=== PATIENT | male | born 1950 | race Caucasian/White ===

== ENCOUNTER 2022-05-22 21:51 | Inpatient (IN) | payer MEDICARE ==
[~2022-05-22] VITALS: Ht 193 cm; Wt 63.5 kg
[2022-05-22] MEDS ORDERED: CARB1TAB24 PO (23:19)
[2022-05-22] MEDS ORDERED: PRAM1TAB7 PO (23:21)
[2022-05-22] MEDS ORDERED: QUET50TA15 PO (23:22)
[2022-05-22] MEDS ORDERED: ACETAMINOPHEN 325 MG TABLET PO PRN (23:30)
[2022-05-22] MEDS ORDERED: LORAZEPAM 0.5 MG TABLET PO PRN (23:30)
[2022-05-22] MEDS ORDERED: MAGNESIUM HYDROXIDE 30 ML UDC PO PRN (23:30)
[2022-05-22] MEDS ORDERED: MAG HYDROX/AL HYDROX/SIMETH 30 ML UDC PO PRN (23:30)
[2022-05-22] MEDS ORDERED: BLOOD SUGAR DIAGNOSTIC 1 EACH STRIP IN ONE (23:45)
[2022-05-23 00:17] VITALS: BP 138/67
--- NOTE | 2022-05-23 01:22 | NUR ---
GPS ADMISSION NOTE,RECEIVED PATIENT FROM [facility].ARRIVED ON THIS UNIT AT 2300 VIA STRETCHER WITH 2 EMT ESCORTS.PATIENT ADMITTED ON 5150 HOLD FOR GD.THE 5150 WAS REVIEWED AND THE DOCUMENTATION IN THE 5150 HOLD APPEARS TO REFLECT THE PRESENTATION OF THE PATIENT.UPON FACE TO FACE ASSESSMENT.PATIENT IS NOTED ,DISHEVELED ,DISORGANIZED,COOPERATIVE AND NEEDS REDIRECTION.PATIENT IS CURRENTLY LYING IN BED,AWAKE HAS NO S/S OR COMPLAINT OF PAIN.PATIENT IS DISPLAYING NO S/S OF APPARENT DISTRESS.PATIENT BREATHING EVEN AND UNLABORED WITH EQUAL RISE AND FALL OF CHEST.PATIENT IS ALERT AND ORIENTED X1.ON ROOM AIR.PATIENT ASSISTED FOR TURNING AND REPOSITION Q2H AND PRN FOR COMFORT AND CIRCULATION.PATIENT HAS NO NEEDS AT THIS TIME.PATIENT DENIES SUICIDE IDEATIONS AND HOMICIDAL IDEATIONS AT THIS TIME.PATIENT REFUSED TO SIGN ANY PAPER WORK.PATIENT ADVISED OF HER HOLD AND PATIENT RIGHTS BOOKLET GIVEN.PATIENT IS UNDER THE PSYCHIATRIC CARE OF AND THE MEDICAL CARE OF CHARLES JAMES.PATIENT BELONGINGS WERE INVENTORIED AND CHECKED FOR CONTRABAND.ALL CONTRABAND REMOVED AND STORED IN PATIENT HALLWAY LOCKER.PATIENT ADVANCED DIRECTIVES PREFERENCE,IMMUNIZATIONS QUESTIONER,NECESSARY PAPERWORKS COMPLETED.PATIENT SKIN ASSESSMENT COMPLETED.PATIENT ORIENTATED TO ROOM.FLOOR,AND STAFF WITH ALL QUESTIONS ANSWERED.PATIENT EDUCATED TO THE USE OF THE CALL DE [place].PATIENT BED SIDE RAILS UPX2 FOR SAFETY.PATIENT BED IS LOCKED,LOW AND WILL CONTINUE TO MONITOR THIS PATIENT Q15 MIN WITH THE HELP OF STAFF TO MAINTAIN SAFETY.
[2022-05-23 07:21] LABS: BASOPHILS # (AUTO) 0.1 K/uL (0.0-0.2); BASOPHILS % (AUTO) 2.1 % (0.0-2.0); EOSINOPHILS % (AUTO) 5.5 % (0.0-6.0); HEMATOCRIT 37 % (39-51); HEMOGLOBIN 12.4 g/dL (13.5-17.5); LYMPHOCYTES # (AUTO) 1.3 K/uL (0.8-4.8); LYMPHOCYTES % (AUTO) 30.2 % (20.0-44.0); MEAN CORPUSCULAR HGB CONC 33 g/dl (31.0-36.0); MEAN CORPUSCULAR VOLUME 90 fL (80-96); MONOCYTES # (AUTO) 0.3 K/uL (0.1-1.30); MONOCYTES % (AUTO) 6.6 % (2.0-12.0); NEUTROPHILS # (AUTO) 2.4 K/uL (1.8-8.9); NEUTROPHILS % (AUTO) 55.6 % (43.0-81.0); PLATELET COUNT (AUTO) 149 K/uL (150-450); RED BLOOD CELL COUNT(AUTO) 4.16 MIL/uL (4.5-6.0); WHITE BLOOD COUNT (AUTO) 4.3 K/uL (4.3-11.0)
[2022-05-23 07:36] LABS: CHOLESTEROL 165 mg/dL (<200); HDL CHOLESTEROL 66 mg/dL (40-60); LDL 105 mg/dL (0-99); TRIGLYCERIDES 52 mg/dL (30-150)
[2022-05-23 07:40] LABS: CALCIUM, SERUM 8.7 mg/dL (8.5-10.1); CARBON DIOXIDE 26 mmol/L (21-32); CHLORIDE 105 mmol/L (98-107); CREATININE 0.6 mg/dL (0.6-1.3); GLUCOSE 121 mg/dL (74-106); POTASSIUM 3.8 mmol/L (3.5-5.1); SODIUM SERUM 138 mmol/L (136-145); UREA NITROGEN, BLOOD 31 mg/dL (7-18)
[2022-05-23 08:00] VITALS: BP 135/82
[2022-05-23] MEDS: Z GUARD REMEDY 4 OZ OINT TP SCH (08:31)
[2022-05-23] MEDS: ENSURE ENLIVE CHOC 237 ML CAN PO SCH ×2 (08:31→16:51)
[2022-05-23] MEDS: CARBIDOPA/LEVODOPA 25/250 MG 1 UDTAB PO SCH ×4 (08:33→21:42)
[2022-05-23] MEDS: PRAMIPEXOLE DI-HCL 0.25 MG TABLET PO SCH ×3 (08:33→16:51)
--- NOTE | 2022-05-23 09:50 | NUR ---
ANDREW Clinical Note: Pt placed on a 5150 hold for GD. Per hold, pt has been confused and paranoid at home. Neighbors were concerned. Patient reported that he lives alone located at [address] [place] [address]; ([phone]). Pt has no supportive contact. ANDREW attempted to contact pt's sister Genesis ([phone]) and the phone number did not go through. ANDREW will file for APS for self-neglect.
--- NOTE | 2022-05-23 09:50 | NUR ---
ANDREW Initial Discharge Note: Patient reported that he lives alone located at [address] [place] [address]; ([phone]). Pt has no supportive contact. SW attempted to contact pt's sister Genesis ([phone]) and the phone number did not go through. ANDREW will file for APS for self-neglect. ANDREW will work with the MD and pt to help coordinate appropriate discharge.
--- NOTE | 2022-05-23 09:51 | NUR ---
ANDREW Family Contact: ANDREW attempted to contact pt's sister Genesis ([phone]) and the phone number did not go through. ANDREW was unable to locate any information.
--- NOTE | 2022-05-23 10:01 | NUR ---
APS: ANDREW filed for APS through [facility] intake #[id number] for self-neglect at home. ANDREW placed copy in the chart.
[2022-05-23 16:00] VITALS: BP 91/52
--- NOTE | 2022-05-23 19:30 | NUR ---
GPS RN NOTE, RECEIVED PATIENT AWAKE AND IN BED, NO S/S OR COMPLAINTS OF PAIN AT THIS TIME. PATIENT IS DISPLAYING NO S/S OF APPARENT DISTRESS AT THIS TIME. PATIENT BREATHING IS UNLABORED WITH EQUAL RISE AND FALL OF THE CHEST. PATIENT IS ALERT AND ORIENTED X 2-3 ON ROOM AIR WITH A SPO2 99%. PATIENT IS COMPLIANT WITH MEDICATIONS, PARANOID, ANXIOUS AT TIMES, MAKES NEEDS KNOWN, AND COOPERATIVE. PATIENT DENIES SUICIDAL AND HOMICIDAL IDEATIONS AT THIS TIME. PATIENT ASSISTED WITH TURNING AND REPOSITIONING Q2HR AND PRN FOR COMFORT AND CIRCULATION. PATIENT HAS NO NEEDS AT THIS TIME. PATIENT EDUCATED ON THE USE OF THE CALL DE [place]. PATIENT BED SIDE RAILS UP X 2 FOR SAFETY. PATIENT BED IS LOCKED, LOW, WITH BED ALARM ON. WILL CONTINUE TO MONITOR THIS PATIENT Q15 MINUTES WITH THE HELP OF STAFF TO MAINTAIN SAFETY.
[2022-05-23 20:00] VITALS: BP 114/58
[2022-05-23] MEDS: QUETIAPINE FUMARATE 25 MG TABLET PO SCH (21:42)
[2022-05-24 08:00] VITALS: BP 128/69
[2022-05-24] MEDS: CARBIDOPA/LEVODOPA 25/250 MG 1 UDTAB PO SCH ×4 (08:19→21:39)
[2022-05-24] MEDS: FLUOXETINE HCL 20 MG CAPSULE PO SCH (08:19)
[2022-05-24] MEDS: PRAMIPEXOLE DI-HCL 0.25 MG TABLET PO SCH ×3 (08:19→16:43)
[2022-05-24] MEDS: ENSURE ENLIVE CHOC 237 ML CAN PO SCH ×2 (08:20→17:10)
[2022-05-24] MEDS: Z GUARD REMEDY 4 OZ OINT TP SCH (09:00)
--- NOTE | 2022-05-24 09:30 | NUR ---
RN Notes: Received pt. asleep in bed, breathing is even and unlabored. Ate 100% for breakfast and compliant on meds. Pt. is pleasant upon approached, quiet and socializes with staffs. Encouraged to verbalize feelings and motivated to attend group activity. Morning care rendered and skin treatment done. Needs attended and will continue to monitor for safety.
[2022-05-24 16:31] VITALS: BP 102/56
[2022-05-24 21:00] VITALS: BP 134/55
[2022-05-24] MEDS: QUETIAPINE FUMARATE 25 MG TABLET PO SCH (21:39)
[2022-05-25 08:00] VITALS: BP 123/69
--- NOTE | 2022-05-25 09:54 | NUR ---
RN-CO: PATIENT IS AWAKE, DENIED PAIN AND DISCOMFORTS. HIS AFFECT IS BLUNTED, HE IS SUSPICIOUS, HE NEEDS ENCOURAGEMENT AND MODERATE ASSISTANCE FOR ADL.
[2022-05-25] MEDS: CARBIDOPA/LEVODOPA 25/250 MG 1 UDTAB PO SCH ×4 (10:10→21:06)
[2022-05-25] MEDS: PRAMIPEXOLE DI-HCL 0.25 MG TABLET PO SCH ×3 (10:10→17:00)
[2022-05-25] MEDS: FLUOXETINE HCL 20 MG CAPSULE PO SCH (10:10)
[2022-05-25] MEDS: ENSURE ENLIVE CHOC 237 ML CAN PO SCH ×2 (10:18→17:19)
[2022-05-25] MEDS: Z GUARD REMEDY 4 OZ OINT TP SCH (10:18)
[2022-05-25 16:00] VITALS: BP 90/50
[2022-05-25 20:34] VITALS: BP 100/56
[2022-05-25] MEDS: QUETIAPINE FUMARATE 25 MG TABLET PO SCH (21:06)
[2022-05-25] MEDS: TEMAZEPAM 7.5 MG CAPSULE PO PRN (23:45)
[2022-05-26 08:00] VITALS: BP 131/83
[2022-05-26] MEDS: ENSURE ENLIVE CHOC 237 ML CAN PO SCH ×2 (08:54→17:26)
[2022-05-26] MEDS: CARBIDOPA/LEVODOPA 25/250 MG 1 UDTAB PO SCH ×4 (09:08→21:30)
[2022-05-26] MEDS: FLUOXETINE HCL 20 MG CAPSULE PO SCH (09:08)
[2022-05-26] MEDS: PRAMIPEXOLE DI-HCL 0.25 MG TABLET PO SCH ×3 (09:08→17:26)
[2022-05-26] MEDS: Z GUARD REMEDY 4 OZ OINT TP SCH (09:09)
--- NOTE | 2022-05-26 10:31 | NUR ---
RN-CO:PATIENT DENIED PAIN AND DISCOMFORTS. COOPERATIVE TO STAFF TO HIS MEDICATIONS AND ATE HIS BREAKFAST. HE NEEDS MODERATE ASSISTANCE WITH ADL AND 1 PERSON ASSISTANCE WHEN AMBULATING. SOMETIMES HE FORGETS TO USE HIS WALKER SO CONSTANT REMINDER MUST BE IMPLEMENTED.
--- NOTE | 2022-05-26 10:37 | NUR ---
ANDREW Friend Contact: SW received a call from Val ([phone]) and wanted to discuss pt's treatment/discharge plan. She shared that she is pt's friend of 50 year. She reported that pt has parkinsons and that the delusions and paranoid is a new behavior. She shared that she is unsure if he was taking his medication at home or was not. She stated that she lives in [place]. She stated she is trying to get DPOA over pt. She shared that pt does not speak to sister and that pt sister neglects his care.
[2022-05-26 16:00] VITALS: BP 100/51
[2022-05-26 20:50] VITALS: BP 109/46
[2022-05-26] MEDS: QUETIAPINE FUMARATE 25 MG TABLET PO SCH (21:30)
[2022-05-27] MEDS: ENSURE ENLIVE CHOC 237 ML CAN PO SCH ×2 (07:59→17:16)
[2022-05-27 08:00] VITALS: BP 125/67
[2022-05-27] MEDS: CARBIDOPA/LEVODOPA 25/250 MG 1 UDTAB PO SCH ×4 (09:00→20:26)
[2022-05-27] MEDS: Z GUARD REMEDY 4 OZ OINT TP SCH (09:00)
[2022-05-27] MEDS: FLUOXETINE HCL 20 MG CAPSULE PO SCH (09:00)
[2022-05-27] MEDS: PRAMIPEXOLE DI-HCL 0.25 MG TABLET PO SCH ×3 (09:00→17:17)
--- NOTE | 2022-05-27 11:03 | NUR ---
Court Hearing: Patient's court hearing for 0550 was today and it was upheld for GD.
--- NOTE | 2022-05-27 11:03 | NUR ---
Court Notification: Pt does not want anyone to be contacted of court hearing.
[2022-05-27 16:00] VITALS: BP 131/71
[2022-05-27 19:43] VITALS: BP 100/54
[2022-05-27] MEDS: QUETIAPINE FUMARATE 25 MG TABLET PO SCH (20:26)
[2022-05-27] MEDS: TEMAZEPAM 7.5 MG CAPSULE PO PRN (20:27)
[2022-05-28 08:00] VITALS: BP 122/58
[2022-05-28] MEDS: ENSURE ENLIVE CHOC 237 ML CAN PO SCH ×2 (08:12→16:03)
[2022-05-28] MEDS: PRAMIPEXOLE DI-HCL 0.25 MG TABLET PO SCH ×3 (09:20→16:03)
[2022-05-28] MEDS: CARBIDOPA/LEVODOPA 25/250 MG 1 UDTAB PO SCH ×4 (09:21→20:59)
[2022-05-28] MEDS: FLUOXETINE HCL 20 MG CAPSULE PO SCH (09:21)
[2022-05-28] MEDS: Z GUARD REMEDY 4 OZ OINT TP SCH (10:58)
[2022-05-28] MEDS: Z GUARD REMEDY 4 OZ OINT TP PRN (10:58)
--- NOTE | 2022-05-28 15:21 | NUR ---
SNF Referral: SW sent clinicals to [facility] to Ginny ramirez ([phone]) for placement. SW sent H & P, progress notes, and medication list.
[2022-05-28 16:00] VITALS: BP 117/69
--- NOTE | 2022-05-28 17:10 | NUR ---
RN-CO: PT WAS ENCOURAGED TO ALWAYS USE HIS WALKER AND CALL FOR ASSISTANCE.PT FORGETS TO USE HIS WALKER.
[2022-05-28 17:52] LABS: THYROID STIMULATING HORMONE 4.197 uIU/mL (0.358-3.74)
[2022-05-28 20:36] VITALS: BP 95/45
[2022-05-28] MEDS: QUETIAPINE FUMARATE 25 MG TABLET PO SCH (20:59)
[2022-05-29 08:00] VITALS: BP 94/61
[2022-05-29] MEDS: PRAMIPEXOLE DI-HCL 0.25 MG TABLET PO SCH ×3 (09:20→16:07)
[2022-05-29] MEDS: CARBIDOPA/LEVODOPA 25/250 MG 1 UDTAB PO SCH ×4 (09:20→21:37)
[2022-05-29] MEDS: FLUOXETINE HCL 20 MG CAPSULE PO SCH (09:20)
[2022-05-29] MEDS: Z GUARD REMEDY 4 OZ OINT TP PRN (09:21)
[2022-05-29] MEDS: Z GUARD REMEDY 4 OZ OINT TP SCH (09:22)
[2022-05-29] MEDS: ENSURE ENLIVE CHOC 237 ML CAN PO SCH ×2 (09:25→17:20)
--- NOTE | 2022-05-29 13:43 | NUR ---
Assumed Care: Pt. is in the dining room and doing arts, quiet and pleasant upon approached. No distress and no agitation noted. Will continue to monitor for safety.
[2022-05-29 16:00] VITALS: BP 114/59
--- NOTE | 2022-05-29 16:25 | NUR ---
Pt. paces in the hallway without a walker, was encouraged to use a walker and said he is ok and refused to use a walker.
--- NOTE | 2022-05-29 19:30 | NUR ---
GPS RN NOTE, RECEIVED PATIENT AWAKE AND IN BED, NO S/S OR COMPLAINTS OF PAIN AT THIS TIME. PATIENT IS DISPLAYING NO S/S OF APPARENT DISTRESS AT THIS TIME. PATIENT BREATHING IS UNLABORED WITH EQUAL RISE AND FALL OF THE CHEST. PATIENT IS ALERT AND ORIENTED X 2-3 ON ROOM AIR WITH A SPO2 98%. PATIENT IS COMPLIANT WITH MEDICATIONS, PARANOID, ANXIOUS AT TIMES, MAKES NEEDS KNOWN, AND COOPERATIVE. PATIENT DENIES SUICIDAL AND HOMICIDAL IDEATIONS AT THIS TIME. PATIENT ASSISTED WITH TURNING AND REPOSITIONING Q2HR AND PRN FOR COMFORT AND CIRCULATION. PATIENT HAS NO NEEDS AT THIS TIME. PATIENT EDUCATED ON THE USE OF THE CALL DE [place]. PATIENT BED SIDE RAILS UP X 2 FOR SAFETY. PATIENT BED IS LOCKED, LOW, WITH BED ALARM ON. WILL CONTINUE TO MONITOR THIS PATIENT Q15 MINUTES WITH THE HELP OF STAFF TO MAINTAIN SAFETY.
[2022-05-29 20:00] VITALS: BP 111/62
[2022-05-29] MEDS: QUETIAPINE FUMARATE 25 MG TABLET PO SCH (21:37)
[2022-05-30 08:00] VITALS: BP 124/67
[2022-05-30] MEDS: ENSURE ENLIVE CHOC 237 ML CAN PO SCH ×2 (08:21→17:20)
[2022-05-30] MEDS: CARBIDOPA/LEVODOPA 25/250 MG 1 UDTAB PO SCH ×4 (08:22→21:14)
[2022-05-30] MEDS: PRAMIPEXOLE DI-HCL 0.25 MG TABLET PO SCH ×3 (08:23→16:12)
[2022-05-30] MEDS: Z GUARD REMEDY 4 OZ OINT TP SCH (08:36)
[2022-05-30] MEDS: Fluoxetine 10 mg capsule PO SCH (08:36)
--- NOTE | 2022-05-30 09:30 | NUR ---
RN Notes: Received pt. awake in bed, quiet and responsive to staffs and pleasant upon approached. Ate 100% for breakfast and compliant on meds. Encouraged to verbalize feelings, encouraged to take shower and encouraged to attend group activity. Needs attended and will continue to monitor for safety.
[2022-05-30 16:00] VITALS: BP 105/66
[2022-05-30 20:00] VITALS: BP 123/69
[2022-05-30] MEDS: QUETIAPINE FUMARATE 25 MG TABLET PO SCH (21:14)
[2022-05-31 08:00] VITALS: BP 115/64
[2022-05-31] MEDS: PRAMIPEXOLE DI-HCL 0.25 MG TABLET PO SCH ×3 (08:09→16:30)
[2022-05-31] MEDS: CARBIDOPA/LEVODOPA 25/250 MG 1 UDTAB PO SCH ×4 (08:09→21:30)
[2022-05-31] MEDS: Fluoxetine 10 mg capsule PO SCH (08:10)
[2022-05-31] MEDS: ENSURE ENLIVE CHOC 237 ML CAN PO SCH ×2 (08:10→17:55)
[2022-05-31] MEDS: Z GUARD REMEDY 4 OZ OINT TP SCH (09:43)
--- NOTE | 2022-05-31 09:45 | NUR ---
RN Notes: Received pt. awake in bed, quiet and responsive to staffs and pleasant upon approached. Ate 100% for breakfast and compliant on meds. Encouraged to verbalize feelings and encouraged to attend group activity. Needs attended and will continue to monitor for safety.
[2022-05-31 16:00] VITALS: BP 100/90
[2022-05-31 20:38] VITALS: BP 113/63
[2022-05-31] MEDS: QUETIAPINE FUMARATE 25 MG TABLET PO SCH (21:30)
[2022-06-01 08:00] VITALS: BP 99/52
[2022-06-01] MEDS: PRAMIPEXOLE DI-HCL 0.25 MG TABLET PO SCH ×3 (08:04→16:52)
[2022-06-01] MEDS: CARBIDOPA/LEVODOPA 25/250 MG 1 UDTAB PO SCH ×4 (08:04→20:07)
[2022-06-01] MEDS: Fluoxetine 10 mg capsule PO SCH ×2 (08:04→08:19)
[2022-06-01] MEDS: FLUOXETINE HCL 20 MG CAPSULE PO SCH (08:19)
[2022-06-01] MEDS: Z GUARD REMEDY 4 OZ OINT TP PRN (09:46)
[2022-06-01] MEDS: ENSURE ENLIVE CHOC 237 ML CAN PO SCH ×2 (09:47→16:52)
[2022-06-01] MEDS: Z GUARD REMEDY 4 OZ OINT TP SCH (09:47)
--- NOTE | 2022-06-01 10:10 | NUR ---
RN-CO: Patient is in the hallway, he denied pain and discomforts. He is somewhat better, no paranoia noted, he also denied that he is feeling that way. He is calm and cooperative to care. Noted patient is participating in groups.I will continue to monitor.
--- NOTE | 2022-06-01 11:23 | NUR ---
RN-CO: DR NICKERSON ORDERED TO D/C PROZAC 30 MG , NOTED AND CARRIED OUT.
[2022-06-01 16:00] VITALS: BP 104/66
[2022-06-01] MEDS: QUETIAPINE FUMARATE 25 MG TABLET PO SCH (20:07)
[2022-06-01 20:58] VITALS: BP 108/66
[2022-06-02] MEDS: ENSURE ENLIVE CHOC 237 ML CAN PO SCH ×2 (09:06→17:09)
[2022-06-02] MEDS: FLUOXETINE HCL 20 MG CAPSULE PO SCH (09:07)
[2022-06-02] MEDS: PRAMIPEXOLE DI-HCL 0.25 MG TABLET PO SCH ×3 (09:07→16:08)
[2022-06-02] MEDS: CARBIDOPA/LEVODOPA 25/250 MG 1 UDTAB PO SCH ×4 (09:07→20:52)
[2022-06-02] MEDS: Z GUARD REMEDY 4 OZ OINT TP SCH (09:07)
[2022-06-02 16:00] VITALS: BP 107/54
[2022-06-02 20:33] VITALS: BP 110/61
[2022-06-02] MEDS: QUETIAPINE FUMARATE 25 MG TABLET PO SCH (20:51)
[2022-06-03] MEDS: ENSURE ENLIVE CHOC 237 ML CAN PO SCH ×2 (07:53→17:45)
[2022-06-03 08:00] VITALS: BP 138/77
[2022-06-03] MEDS: PRAMIPEXOLE DI-HCL 0.25 MG TABLET PO SCH ×3 (08:51→17:55)
[2022-06-03] MEDS: CARBIDOPA/LEVODOPA 25/250 MG 1 UDTAB PO SCH ×4 (08:51→20:54)
[2022-06-03] MEDS: FLUOXETINE HCL 20 MG CAPSULE PO SCH (08:52)
[2022-06-03] MEDS: Z GUARD REMEDY 4 OZ OINT TP SCH (08:53)
[2022-06-03 16:00] VITALS: BP 106/48
[2022-06-03 20:18] VITALS: BP 109/62
[2022-06-03] MEDS: QUETIAPINE FUMARATE 25 MG TABLET PO SCH (20:54)
[2022-06-04 08:00] VITALS: BP 140/66
[2022-06-04] MEDS: CARBIDOPA/LEVODOPA 25/250 MG 1 UDTAB PO SCH ×2 (08:43→12:52)
[2022-06-04] MEDS: FLUOXETINE HCL 20 MG CAPSULE PO SCH (08:43)
[2022-06-04] MEDS: PRAMIPEXOLE DI-HCL 0.25 MG TABLET PO SCH ×2 (08:44→12:52)
[2022-06-04] MEDS: ENSURE ENLIVE CHOC 237 ML CAN PO SCH (08:44)
[2022-06-04] MEDS: Z GUARD REMEDY 4 OZ OINT TP SCH (08:44)
--- NOTE | 2022-06-04 09:15 | NUR ---
SNF Contact: SW spoke with [facility] to Ginny ramirez ([phone]) who stated pt is accepted.
--- NOTE | 2022-06-04 09:46 | NUR ---
SW Discharge Note: Patient will be discharged to [facility] [address], [place] [address] ([phone]). Please arrange ambulance transportation at 1PM. Spoke with Genesis, Admin Coordinator at the facility who states they are ready to accept the patient today. Patients friend Val ([phone]) is aware of dc. Patient is alert and oriented x3. Patient denies any suicidal or homicidal ideation. Patient will follow-up at the facility with Dr. Juarez (psychiatrist) [address] [facility] [address], [place] [address]; ([phone]) and ([employer]) Dr. Magaña [address] [facility] [address], [place] [address]; ([phone]). Patient presents with euthymic mood and congruent affect.
--- NOTE | 2022-06-04 14:50 | NUR ---
NURSE NOTE: 71 YEAR OLD MALE DISCHARGED TO [facility] IN [place]. PT COMPLIANT WITH MEDICATIONS, COOPERATIVE WITH TREATMENT PLANS. PT DENIES SI/HI AND INSTRUCTED TO GO TO THE CLOSEST ER IF DEVELOPING SI/HI. BEHAVIOR IMPROVED PSYCHIATRIC TX PLANS MET, MEDICAL TX PLANS DEFERRED FOR CONTINUAL MONITORING. DR NICKERSON DISCONTINUED HOLD. BOTH DR NICKERSON AND DR DEMPSEY DISCHARGED PT. EDUCATED PT ABOUT AFTER CARE PLAN AND COPY PROVIDED. RETURNED PERSONAL BELONGINGS TO PT. MEDICATIONS RECONCILED WITH DR MENDOZA AND DR DEMPSEY. REPORT GIVEN TO BOUCHRA CANCHOLA AT [facility] FOR CONTINUITY OF CARE. PT SIGNED DISCHARGE PAPERWORK. PT LEFT THE UNIT AT 1450 VIA AMBULANCE.
== END 2022-06-04 14:50 | DRG 885 ==
LOC: GPS 22:29
PROVIDERS: ADMIT Psychiatry & Neurology Psychosomatic Medicine; ATTEND Internal Medicine
DX: F33.3 Major depressive disorder, recurrent, severe with psychotic symptoms (principal); N17.0 Acute kidney failure with tubular necrosis; G20 Parkinson's disease; D64.9 Anemia, unspecified; F41.9 Anxiety disorder, unspecified; Z91.81 History of falling; Z79.899 Other long term (current) drug therapy; M62.81 Muscle weakness (generalized); R41.9 Unspecified symptoms and signs involving cognitive functions and awareness; F09 Unspecified mental disorder due to known physiological condition; T42.8X5A Adverse effect of antiparkinsonism drugs and other central muscle-tone depressants, initial encounter; Y92.89 Other specified places as the place of occurrence of the external cause; R27.8 Other lack of coordination; E03.9 Hypothyroidism, unspecified
CPT/HCPCS: 36415; 80048-TC; 80061-TC; 82607-TC; 82962-TC; 83921; 84443-TC; 84480; 85025-TC; 87081-TC; 97112-TC; 97116-TC; 97530-TC